=== PATIENT | male | born 1955 | race Caucasian/White ===

== ENCOUNTER → 2020-02-04 | Outpatient (CLI) | payer MEDICARE, BC ==
[~2020-02-04] MED LIST: OMEP20ER PO; Vitamin D400 UNI1 PO
[2020-02-04 14:23] LABS: BASOPHILS ABSOLUTE AUTO 0.11 K/mm3 (0.00-0.23); BASOPHILS PERCENT AUTO 1 % (0-2); EOSINOPHILS ABSOLUTE AUTO 0.26 K/mm3 (0.00-0.68); EOSINOPHILS PERCENT AUTO 3 % (0-6); Hematocrit 49.5 % (37.0-53.0); Hemoglobin 16.1 g/dL (13.5-17.5); IMMATURE GRAN ABSOLUTE AUTO 0.03 K/mm3 (0.00-0.10); IMMATURE GRAN PERCENT AUTO 0 % (0-1); LYMPHOCYTES ABSOLUTE AUTO 2.53 K/mm3 (0.84-5.20); LYMPHOCYTES PERCENT AUTO 26 % (21-46); MONOCYTES ABSOLUTE AUTO 0.86 K/mm3 (0.16-1.47); MONOCYTES PERCENT AUTO 9 % (4-13); Mean Corpuscular HGB 31.6 pg (26.0-34.0); Mean Corpuscular HGB Conc 32.5 g/dL (31.5-36.5); Mean Corpuscular Volume 97 fL (80-100); Mean Platelet Volume 11.2 fL (9.1-12.4); NEUTROPHILS ABSOLUTE AUTO 6.13 K/mm3 (1.96-9.15); NEUTROPHILS PERCENT AUTO 62 % (41-73); Platelet Count 269 K/mm3 (150-400); RDW Coefficient Variation 12.7 % (11.7-14.2); RDW Standard Deviation 45.3 fL (35.1-46.3); Red Blood Cell Count 5.09 M/mm3 (4.30-5.90); White Blood Cell Count 9.92 K/mm3 (4.00-11.30)
[2020-02-04 14:46] LABS: LDL/HDL RATIO 4.6
[2020-02-04 14:47] LABS: Alanine Aminotransfer (ALT/SGP 16 U/L (12-78); Albumin, Blood 3.8 g/dL (3.4-5.0); Albumin/Globulin Ratio 1.1 (0.8-1.8); Alk Phos 94 U/L (50-136); Anion Gap 4 mmol/L (6-16); Aspartate Aminotrans (AST/SGOT 19 U/L (12-37); Bilirubin, Total 0.8 mg/dL (0.1-1.0); Blood Urea Nitrogen 14 mg/dL (8-24); Bun/Creatinine Ratio 13.6 (12.0-20.0); CHOL/HDL RATIO 6.3; CO2, Blood 28 mmol/L (21-32); Calcium, Blood 8.8 mg/dL (8.5-10.1); Chloride, Blood 109 mmol/L (98-108); Cholesterol 196 mg/dL (50-200); Creatinine, Blood 1.03 mg/dL (0.60-1.20); Globulin, Blood 3.6 g/dL (2.2-4.0); Glomerular Filtration Rate >60 (60-); Glucose, Blood 93 mg/dL (70-99); HDL Cholesterol 31 mg/dL (>39); Low Density Lipoprotein Chol 142 mg/dL (0-110); Potassium, Blood 4.3 mmol/L (3.5-5.5); Sodium, Blood 141 mmol/L (136-145); Total Protein, Blood 7.4 g/dL (6.4-8.2); Triglycerides 114 mg/dL (30-160); Very Low Density Lipoprot Chol 22 mg/dL (6-32)
== END | disposition home or self-care (01) ==
LOC: LAB SHORT 11:56 → LAB 11:56 → EDSTATUS 02-03 11:10 → LAB FUT 02-03 11:10
PROVIDERS: Family Medicine
DX: E78.2 Mixed hyperlipidemia (principal); N18.2 Chronic kidney disease, stage 2 (mild); N52.9 Male erectile dysfunction, unspecified
CPT/HCPCS: 80053; 80061; 83036; 84403; 85025

== ENCOUNTER 2020-04-25 09:38 | Day surgery (SDC) | payer BC, MEDICARE ==
[~2020-04-25] VITALS: Ht 182.9 cm; Wt 115.0 kg
[~2020-04-25 09:38] MED LIST changes: +Aspir 8181 MG PO; +TADA10TA PO
--- NOTE | 2020-04-25 14:30 | NUR ---
1430 PATIENT RETURNED FROM THE PROCEDURE ROOM AND SBAR RECEIVED FROM SUSANA ACKERMAN. PATIENT ORDER CLARIFIED WITH DR. ELLIOTT PEÑALOZA PLAVIX 75 MG ORAL GIVEN ORDERED. LEFT GROIN SITE CDI, DRESSING INTACT. PULSES TO THE RIGHT DP/PT VERIFIED BY DOPPLER. PULSES TO THE LEFT DP/PT FELT +1. DRESSING TOT HE RIGHT PEDAL WITH GEOFF AND TEGADERM IN PLACE. VVS. NO PAIN NOTED. AWAKE AND DRINKING WATER AT THE BEDSIDE.
[2020-04-25] MEDS ORDERED: CLOP75 PO (14:47)
--- NOTE | 2020-04-25 15:03 | NUR ---
1500 LUNCH TRAY SERVED. LEFT GROIN SITE UNCHANGED. VVS. PATIENT WITH COUGH, FREQUENT GROINS CHECKS PERFORMED. FEEDING SELF WITH HOB UP 15 DEGREES.
--- NOTE | 2020-04-25 17:04 | NUR ---
2230 DR. GALLAGHER AT THE BEDSIDE. SPOKE WITH PATIENT ABOUT RESULTS AND RECOVERY EXPECTATIONS, WALKING REGIME AND TO QUIT SMOKING. ALL QUESTIONS ANSWERED.
--- NOTE | 2020-04-25 17:05 | NUR ---
1700 HERE AND PATIENT UP OOB. DRESSED SELF, TO THE RESTROOM, AND REVIEWED ALL DISCHARGE INSTRUCTIONS WITH THE AND PATIENT. PATIENT DISGRUNTAL ABOUT SMOKING CESSATION. PATIENT AGREES TO TRY AND TO WALK DISCUSSED WITH DR. GALLAGHER. PIV REMOVED AND CATHETER TIP INTACT. PRESSURE DRESSING APPLIED AND ALL BELONGINGS GATHERED. 1705 PATIENT DISCHARGED AMBULATORY WITH DRIVING.
== END 2020-04-25 22:39 | disposition home or self-care (01) ==
LOC: MHTC 09:38
DX: I70.223 Atherosclerosis of native arteries of extremities with rest pain, bilateral legs (principal); K21.9 Gastro-esophageal reflux disease without esophagitis; N18.2 Chronic kidney disease, stage 2 (mild); F32.9 Major depressive disorder, single episode, unspecified; Z79.899 Other long term (current) drug therapy; F17.210 Nicotine dependence, cigarettes, uncomplicated; Z88.8 Allergy status to other drugs, medicaments and biological substances; Z79.82 Long term (current) use of aspirin
CPT/HCPCS: 37227; 37228; 75625; 75710; 75716; 75774; 76937; 85347; 99152; 99153; A9270-GY; C1714; C1725; C1769; C1874; C1887; C1894; C2623; J1644; J2250; J3010; J7030; Q9967

== ENCOUNTER 2021-05-08 13:05 | Emergency (ER) | payer BC, MEDICARE | END 2021-05-09 02:39 | disposition short-term general hospital (02) | LOC: ER 13:05 | DX: K80.20 Calculus of gallbladder without cholecystitis without obstruction (principal); I10 Essential (primary) hypertension; K21.9 Gastro-esophageal reflux disease without esophagitis; F17.200 Nicotine dependence, unspecified, uncomplicated; Z79.82 Long term (current) use of aspirin; Z79.02 Long term (current) use of antithrombotics/antiplatelets; Z79.899 Other long term (current) drug therapy ==

== ENCOUNTER 2021-05-20 22:58 | Emergency (ER) | payer BC, MEDICARE ==
[~2021-05-20] VITALS: Ht 182.9 cm; Wt 117.9 kg
[~2021-05-20 22:58] MED LIST changes: +CLOP75 PO
[2021-05-20 23:44] LABS: BASOPHILS ABSOLUTE AUTO 0.14 K/mm3 (0.00-0.23); BASOPHILS PERCENT AUTO 1 % (0-2); EOSINOPHILS ABSOLUTE AUTO 0.34 K/mm3 (0.00-0.68); EOSINOPHILS PERCENT AUTO 2 % (0-6); Hematocrit 46.5 % (37.0-53.0); Hemoglobin 15.7 g/dL (13.5-17.5); IMMATURE GRAN ABSOLUTE AUTO 0.11 K/mm3 (0.00-0.10); IMMATURE GRAN PERCENT AUTO 1 % (0-1); LYMPHOCYTES ABSOLUTE AUTO 2.81 K/mm3 (0.84-5.20); LYMPHOCYTES PERCENT AUTO 20 % (21-46); MONOCYTES ABSOLUTE AUTO 1.04 K/mm3 (0.16-1.47); MONOCYTES PERCENT AUTO 7 % (4-13); Mean Corpuscular HGB 32.4 pg (26.0-34.0); Mean Corpuscular HGB Conc 33.8 g/dL (31.5-36.5); Mean Corpuscular Volume 96 fL (80-100); Mean Platelet Volume 10.7 fL (9.1-12.4); NEUTROPHILS ABSOLUTE AUTO 9.92 K/mm3 (1.96-9.15); NEUTROPHILS PERCENT AUTO 69 % (41-73); Platelet Count 320 K/mm3 (150-400); RDW Coefficient Variation 12.8 % (11.7-14.2); RDW Standard Deviation 45.9 fL (35.1-46.3); Red Blood Cell Count 4.85 M/mm3 (4.30-5.90); White Blood Cell Count 14.36 K/mm3 (4.00-11.30)
[2021-05-21 00:01] LABS: Albumin, Blood 3.3 g/dL (3.4-5.0); Albumin/Globulin Ratio 0.9 (0.8-1.8); Bilirubin, Total 0.6 mg/dL (0.1-1.0); Bun/Creatinine Ratio 12.9 (12.0-20.0); Calcium, Blood 9.1 mg/dL (8.5-10.1); Creatinine, Blood 1.24 mg/dL (0.60-1.20); Globulin, Blood 3.8 g/dL (2.2-4.0); Potassium, Blood 4.2 mmol/L (3.5-5.5); Total Protein, Blood 7.1 g/dL (6.4-8.2)
== END 2021-05-21 06:46 | disposition home or self-care (01) ==
LOC: ER 22:58
PROVIDERS: Physician Assistant
DX: R10.9 Unspecified abdominal pain (principal); K21.9 Gastro-esophageal reflux disease without esophagitis; R11.2 Nausea with vomiting, unspecified; M54.9 Dorsalgia, unspecified; K83.9 Disease of biliary tract, unspecified; F17.200 Nicotine dependence, unspecified, uncomplicated; Z79.02 Long term (current) use of antithrombotics/antiplatelets; Z79.82 Long term (current) use of aspirin; Z98.890 Other specified postprocedural states
CPT/HCPCS: 36415; 76705; 80053; 83690; 84484; 85025; 93005; 93010; 96374; 96375; 99284-25; J2270; J2405

== ENCOUNTER 2021-10-02 08:22 | Day surgery (SDC) | payer BC, MEDICARE ==
[~2021-10-02] VITALS: Ht 182.9 cm; Wt 117.0 kg
[2021-10-02] MEDS ORDERED: TADA10TA (09:56)
--- NOTE | 2021-10-02 15:39 | NUR ---
PT VERBALIZES UNDERSTANDING WRITTEN AND VERBAL INSTRUCTIONS. L FEMORAL SITE REMAINS STABLE. VSS. NADN. PT DRESSING SELF WITHOUT DIFF.
--- NOTE | 2021-10-02 15:47 | NUR ---
PT IV DC'D. CATH INTACT. PRESSURE DSG APPLIED. NO BLEEDING NOTED. PT FEMORAL SITE REMAINS CLEAR. VSS. NADN. PT DC TO HOME VIA WC BY DENISE.
== END 2021-10-02 16:26 | disposition home or self-care (01) ==
LOC: MHTC 08:22
DX: I70.211 Atherosclerosis of native arteries of extremities with intermittent claudication, right leg (principal); F17.210 Nicotine dependence, cigarettes, uncomplicated; N18.2 Chronic kidney disease, stage 2 (mild); K21.9 Gastro-esophageal reflux disease without esophagitis
CPT/HCPCS: 36140; 75716; 75774; 76937; 99152; 99153; C1760; C1769; C1887; C1894; J1644; J2250; J3010; J7030; J7050; Q9967